=== PATIENT | female | born 1975 | race Caucasian/White ===

== ENCOUNTER 2018-03-21 19:40 | Emergency (ER) | payer BC ==
[2018-03-21 20:24] VITALS: BP 118/63
[2018-03-21] MEDS ORDERED: Albuterol/Ipratropium NEB.SOL* Albuterol 2.5 MG/Ipratropium 0.5 MG 3 ML INH ONE (20:33)
[2018-03-21] MEDS ORDERED: methylPREDNISolone 125 MG* 2 ML VIAL IM ONE (20:33)
--- NOTE | 2018-03-21 20:46 | UC ---
Respiratory Complaint HPI - HPI Summary HPI Summary: C/O cough with worsening wheezing over the past 4 days. Fevers/ chills/ body aches and headaches. - History of Current Complaint Chief Complaint: UCRespiratory Stated Complaint: R/O PNEUMONIA Time Seen by Provider: 03/21/18 20:21 Hx Obtained From: Patient Hx Last Menstrual Period: 03/10/18 ?: No Onset/Duration: Sudden Onset, Lasting Days - 4, Still Present Severity Initially: Moderate Severity Currently: Moderate Pain Intensity: 0 Character: Cough: Nonproductive - wheezing Alleviating Factors: Bronchodilator - but having to use hourly Associated Signs And Symptoms: Positive: Dyspnea, Fever, Chills, Wheezing, URI, Nasal Congestion Related History: Seasonal Allergies - Allergies/Home Medications Allergies/Adverse Reactions: Allergies Allergy/AdvReac Type Severity Reaction Status Date / Time No Known Allergies Allergy Verified 03/21/18 20:24 Home Medications: Home Medications Albuterol 2.5MG/3ML (0.083%)* [Ventolin 2.5 MG/3 ML NEB.MEENA*] 2.5 mg INH Q4H PRN 03/21/18 [History Confirmed 03/21/18] Albuterol HFA INHALER* [Ventolin HFA Inhaler*] 2 puff INH Q4H PRN 03/21/18 [ History Confirmed 03/21/18] Aspirin/Acetaminophen/Caffeine [Excedrin Extra Strength Caplet] 2 each PO ONCE PRN 03/21/18 [History Confirmed 03/21/18] PMH/Surg Hx/FS Hx/Imm Hx Respiratory History: Asthma - Surgical History Surgical History: None - Family History Known Family History: Positive: Diabetes - Social History Occupation: Employed Full-time Lives: With Family Alcohol Use: None Substance Use Type: None Smoking Status (MU): Never Smoked Tobacco Review of Systems All Other Systems Reviewed And Are Negative: Yes Constitutional: Positive: Fever, Chills, Fatigue ENT: Positive: Sore Throat Respiratory: Positive: Shortness Of Breath, Cough Musculoskeletal: Positive: Myalgia Neurological: Positive: Headache Is Patient Immunocompromised?: No Physical Exam Triage Information Reviewed: Yes Appearance: No Pain Distress, Ill-Appearing, Obese Vital Signs: Initial Vital Signs Temp 97.7 F 03/21/18 20:17 Pulse 91 03/21/18 20:17 Resp 16 03/21/18 20:17 BP 118/63 03/21/18 20:17 Pulse Ox 96 03/21/18 20:17 Vital Signs Reviewed: Yes Eyes: Positive: Conjunctiva Inflamed ENT: Positive: Pharynx normal, Nasal congestion, TMs normal Neck exam: Normal Respiratory: Positive: Wheezing - expiratory wheeze with coughing. 1 hour after albuterol Cardiovascular Exam: Normal Musculoskeletal Exam: Normal Neurological Exam: Normal Psychological Exam: Normal Skin Exam: Normal UC Diagnostic Evaluation - Laboratory O2 Sat by Pulse Oximetry: 96 Diagnostic Studies Comment: Rapid flu Negative Respiratory Course/Dx - Differential Dx/Diagnosis Differential Diagnosis/HQI/PQRI: Asthma, Lower Resp Infection, Sinusitis Provider Diagnosis: Upper respiratory infection, Asthma exacerbation Discharge - Sign-Out/Discharge Documenting (check all that apply): Patient Departure All imaging exams completed and their final reports reviewed: No Studies - Discharge Plan Condition: Stable Disposition: HOME Prescriptions: predniSONE TAB* [Deltasone 20 MG TAB*] 60 mg PO DAILY #18 tab Patient Education Materials: Upper Respiratory Infection (ED), Asthma (ED), Prednisone (By mouth) Referrals: No Primary Care Phys,NOPCP [Primary Care Provider] - 2 Weeks (follow up for asthma evaluation) - Billing Disposition and Condition Condition: STABLE Disposition: Home
[2018-03-22 07:34] LABS: Influenza A Molecular NEGATIVE (Negative); Influenza B Molecular NEGATIVE (Negative)
== END 2018-03-21 21:14 | disposition home or self-care (01) ==
LOC: UCCORT 19:40
DX: J06.9 Acute upper respiratory infection, unspecified (principal); J45.901 Unspecified asthma with (acute) exacerbation
CPT/HCPCS: 96372; 99212; A9270-GY; G0463; J2930